=== PATIENT | male | born 1985 | race Caucasian/White ===

== ENCOUNTER 2020-04-25 08:31 | Outpatient (REF) | payer BC, SELFPAY ==
--- NOTE | ~2020-04-25 | US_ITS ---
EXAMINATION: US ABDOMEN COMPLETE CLINICAL INFORMATION: Cholesterolosis of gallbladder. COMPARISON: Ultrasound abdomen complete dated 08/01/2019 and 01/25/2013 TECHNIQUE: Real-time imaging of the abdominal viscera. Technically difficult study secondary to body habitus. FINDINGS: PANCREAS: Normal. ABDOMINAL AORTA: The proximal, mid, and distal segments are normal in caliber. INFERIOR VENA CAVA: Visualized portions are normal. LIVER: Mildly enlarged measuring up to 21.1 cm. The liver contour is normal. There is diffuse increased liver parenchymal echogenicity, consistent with hepatic steatosis. No focal hepatic lesion. There is no intrahepatic biliary duct dilatation seen. GALLBLADDER: Redemonstration of a nonmobile gallbladder wall polyp which measures approximately 1.2 x 0.8 x 1.2 cm (previously 0.9 x 0.7 cm). The gallbladder is physiologically distended without evidence of stones, sludge, wall thickening, or pericholecystic fluid. COMMON BILE DUCT: Normal in caliber measuring 0.3 cm in diameter. RIGHT KIDNEY: Normal. No hydronephrosis. No renal calculi or focal parenchymal lesions. The kidney measures 13.0 cm in maximum dimension. LEFT KIDNEY: Normal. No hydronephrosis. No renal calculi or focal parenchymal lesions. The kidney measures 12.8 cm in maximum dimension. SPLEEN: Normal. The spleen measures 12.4 cm in maximum dimension. FREE FLUID: None. US/US abdomen complete IMPRESSION: Hepatomegaly and hepatic steatosis are unchanged. Redemonstration of a gallbladder wall polyp which appears slightly more prominent when compared to the prior examination now measuring up to 1.2 cm (previously 1.9 cm).
[2020-04-25 11:58] LABS: Alanine Aminotransferase 96 U/L (0-40); Albumin Level 4.2 g/dL (3.5-5.0); Alkaline Phosphatase 79 U/L (39-117); Anion Gap 12 (12-20); Aspartate Amino Transferase 49 U/L (5-37); Bilirubin Total 0.7 mg/dL (0.0-1.0); Blood Urea Nitrogen 10 mg/dL (9-16); Carbon Dioxide 30 mmol/L (22-29); Chloride 100 mmol/L (96-108); Cholesterol 224 mg/dL; Estimated Glomerular Filt Rate > 60; Glucose Fasting 197 mg/dL (60-99); HDL Cholesterol 36 mg/dL; LDL Cholesterol Calculated 156 mg/dl; Potassium 4.4 mmol/L (3.3-5.1); Sodium 138 mmol/L (135-145); Triglycerides 161 mg/dL
[2020-04-25 12:11] LABS: Estimated Average Glucose 206 mg/dL; Hemoglobin A1c % 8.8 %
== END 2020-04-25 08:32 | disposition home or self-care (01) ==
LOC: HO.US 08:31
PROVIDERS: PCP Nurse Practitioner Family; Visit Provider Nurse Practitioner Family
DX: K82.4 Cholesterolosis of gallbladder (principal); E11.65 Type 2 diabetes mellitus with hyperglycemia
CPT/HCPCS: 36415; 76700; 80053; 80061; 83036

== ENCOUNTER → 2020-06-04 10:09 | Outpatient (BNVA) | payer BC, SELFPAY | PROVIDERS: PCP Nurse Practitioner Family; Visit Provider Surgery ==

== ENCOUNTER 2020-06-24 08:20 | Day surgery (SDC) | payer BC, SELFPAY ==
[2020-06-18 14:56] VITALS: BMI 39.6
--- NOTE | 2020-06-20 11:49 | HO.ANESPROP2 ---
Documented by User: Mary Delatorre 06/20/20 11:50 HPI - Anesthesia Eval Consult details Narrative: 34yo M for Laparoscopic Cholecystectomy, Poss Open [facility] Active Problems Active Problems: All Active Problems (Updated 06/18/20 @ 14:57 by Peggy Hidalgo) Gallbladder polyp (Acute) Uncontrolled diabetes mellitus (Acute) Past Medical History Medical History (Updated 06/24/20 @ 09:11 by Amanda Daley) Elevated cholesterol Elevated ferritin Forehead laceration Gluteal abscess HTN (hypertension) Increased BMI Liver function abnormality Obesity JENNIFFER on CPAP Psoriasis Sleep apnea Type 2 diabetes mellitus Uncontrolled diabetes mellitus Family History Family History Father Heart attack Alcoholism Mother High cholesterol Maternal Grandmother Hx of CABG Maternal Grandfather Hx of CABG Surgical History Surgical History (Updated 06/24/20 @ 09:09 by Amanda Daley) History of excision of lesion No pertinent past surgical history Social History Social History Alcohol intake: former Smoking Status: Former smoker Tobacco Type: Cigarette Advance Directives Information Provided: No Meds Allergies Allergy/AdvReac Type Severity Reaction Status Date / Time No Known Allergies Allergy Verified 04/11/20 17:21 Exam Exam Date and Time: June 20, 2020 1149 Height,Weight and Vital Signs: Height 5 ft 5 in Weight 108 kg Pertinent Lab Results Pertinent Lab Results: Laboratory Tests 04/25/20 09:36 Sodium 138 Potassium 4.4 Chloride 100 Carbon Dioxide 30 H BUN 10 Creatinine 0.75 Assessment and Plan Assessment Anesthesia Assessment: Chart Reviewed Documented by User: Amanda Daley 06/24/20 09:13 PMFSH Past Medical History Medical History (Updated 06/24/20 @ 09:11 by Amanda Daley) Elevated cholesterol Elevated ferritin Forehead laceration Gluteal abscess HTN (hypertension) Increased BMI Liver function abnormality Obesity JENNIFFER on CPAP Psoriasis Sleep apnea Type 2 diabetes mellitus Uncontrolled diabetes mellitus Family History Family History Father Heart attack Alcoholism Mother High cholesterol Maternal Grandmother Hx of CABG Maternal Grandfather Hx of CABG Family history of problems with anesthesia: No Surgical History Surgical History (Updated 06/24/20 @ 09:09 by Amanda Daley) History of excision of lesion No pertinent past surgical history Social History Social History Alcohol intake: former Smoking Status: Former smoker Tobacco Type: Cigarette Advance Directives Information Provided: No Meds Allergies Allergy/AdvReac Type Severity Reaction Status Date / Time No Known Allergies Allergy Verified 04/11/20 17:21 Exam Height,Weight and Vital Signs: Vital Signs Temp Pulse Resp BP Pulse Ox 06/24/20 08:44 98.0 F 94 16 147/91 H 97 Pertinent Lab Results Pertinent Lab Results: Lab Results 06/24/20 Range/Units 08:33 POC Glucose 218 H (60-115) mg/dL Airway Mallampati Class: III TM Dist: >3cm Neck ROM: Full Loose/Missing/Broken Teeth: No Heart: RRR Lungs: CTAB Assessment and Plan Assessment Anesthesia Assessment: Anesthesia Plan Discussed and Chart Reviewed Final Anesthetic Review NPO: Yes ASA Class: II Final Preanesthetic Review: No Changes in Pt Med Stat, Meds/Allgs Chart Reviewed, Consent Obtained/Reviewed and Anes Risks/Benef Reviewed Patient Risk: Intermediate Procedure Risk: Intermediate Assessment/Block/Sedation in SS: Assess/Block/Sedation-SS Anesthetic Plan Anesthetic Plan: GA Disposition: Standard PACU
[2020-06-24] VITALS (9 sets, daily range): BP systolic 80–147; BP diastolic 39–91; PULSE 85–94; RESP 16–18; TEMP 36.7–36.9; O2SAT 94–98
[2020-06-24 08:37] LABS: Glucose, Whole Blood 218 mg/dL (60-115)
[2020-06-24] MEDS: Acetaminophen 325 MG TABLET 650 MG PO (08:37)
--- NOTE | 2020-06-24 08:45 | PC.NURSE ---
Patient wearing one silver necklace with dragon pendant and one wedding band. Taken off and per patient request, put in patients red jacket pocket.
[2020-06-24] MEDS: Lactated Ringers 1,000 ML 100 ML IVCONT (08:58)
--- NOTE | 2020-06-24 09:32 | MHC.SHP ---
Pre-Procedural Eval Section A The patient is an INPATIENT: No Changes since office visit: Yes Patient answered all questions; No Cold of Flu in the past 2 weeks, No New Medical Problems and No Changes in Medication The History & Physical has been completed within 30 days and I have reviewed it.: Yes Section B Chief Complaint: Gallbladder Polyp Allergies: Allergies Allergy/AdvReac Type Severity Reaction Status Date / Time No Known Allergies Allergy Verified 04/11/20 17:21 Plan Diagnosis/Plan: Unchanged I have reviewed the history and physical and performed a pertinent physical examination on my patient. No changes have occurred unless specified.
--- NOTE | 2020-06-24 11:28 | W.PM.OPN ---
Operative Note Operative Note Date of Service: 06/24/20 Narrative: Preoperative diagnosis: Gallbladder polyp Postoperative diagnosis: Same Procedure: Laparoscopic cholecystectomy Surgeon: Andrew Bradley MD [employer]ie[employer] Developer: MAXWELL Griggs Anesthesia: General endotracheal Indications for procedure: 34-year-old male patient presenting with incidentally noted gallbladder polyp which has increased in size and is now greater than 1 cm in length. He presents for laparoscopic cholecystectomy. He has no abdominal symptoms at this time. Operative findings: Normal appearing gallbladder with no obvious palpable mass. Liver with fatty changes. Specimen: Gallbladder Estimated blood loss: 5 mL Complications: None Procedure details: Patient was brought to the OR and placed in a supine position. After administering general anesthesia the patient's abdomen was prepped with ChloraPrep and draped in a sterile fashion. Local anesthesia consisting of 0.5% Sensorcaine with epinephrine was infiltrated in a periumbilical region. A 5 mm incision was made above the umbilicus in a transverse fashion. The Veress needle was then inserted while elevating abdominal cavity with towel clips. After positive drop test the abdomen was insufflated to a pressure of 15 mm of mercury. The Veress needle was then removed and a 5 mm trocar inserted. The camera was inserted in the abdomen explored. A 12 mm trocar was then placed in the epigastrium and 2 x 5 mm trocars placed in the right upper quadrant. The patient was placed in reverse Trendelenburg positioning and rotated to the left. The gallbladder was grasped with the fundus and retracted cephalad.. The infundibulum Was then grasped and retracted away from the liver bed. The Dolphin dissected was then used to dissect the peritoneum off the infundibulum to reveal the junction with the cystic duct. Cystic artery was noted slightly medial and posterior to the cystic duct. After obtaining a critical view the cystic duct was doubly clipped and divided. The cystic artery was then doubly clipped and divided. The gallbladder was then dissected off the liver bed using electrocautery with an L hook. Hemostasis was assured all times using the electrocautery. When the gallbladder is completely dissected off the liver bed was placed in an Endo-Catch bag and brought out through the epigastric incision. The gallbladder was sent to pathology for further examination. The abdomen was then re-examined. The liver bed was irrigated and suctioned dry. No bleeding or bile leak could be identified. CO2 was then evacuated and all trocars removed. Fascia was closed at the epigastric incision using a [id number] 0 Polysorb suture. Skin was closed in all incisions using a subcuticular 4 0 Polysorb suture. Sterile dressings consisting of Steri-Strips, 2 x 2 gauze, and Tegaderm were then applied. The patient tolerated the procedure well. Sponge instrument and needle counts reported as correct. The patient was transferred to PACU in stable condition.
== END 2020-06-24 13:38 | disposition home or self-care (01) ==
PROVIDERS: PCP Nurse Practitioner Family; Visit Provider Surgery
PROC: 0FT44ZZ Resection of Gallbladder, Percutaneous Endoscopic Approach (ICD-10-PCS; CPT 47562; principal; 2020-06-24 09:20)
DX: K81.1 Chronic cholecystitis (principal); I10 Essential (primary) hypertension; E11.9 Type 2 diabetes mellitus without complications; K76.0 Fatty (change of) liver, not elsewhere classified; G47.33 Obstructive sleep apnea (adult) (pediatric); Z79.84 Long term (current) use of oral hypoglycemic drugs; Z79.899 Other long term (current) drug therapy; Z87.891 Personal history of nicotine dependence
CPT/HCPCS: 47562; 82947; 88304; J1100; J1170; J2250; J2370; J2405; J3010

== ENCOUNTER → 2020-07-05 10:54 | Outpatient (BNVA) | payer BC, SELFPAY | PROVIDERS: PCP Nurse Practitioner Family; Referring Provider Nurse Practitioner Family; Visit Provider Surgery ==

== ENCOUNTER 2020-07-17 06:38 | Outpatient (REF) | payer BC, SELFPAY ==
[2020-07-17 12:00] LABS: Alanine Aminotransferase 81 U/L (0-40); Albumin Level 4.2 g/dL (3.5-5.0); Alkaline Phosphatase 77 U/L (39-117); Anion Gap 18 (12-20); Aspartate Amino Transferase 40 U/L (5-37); Bilirubin Total 1.2 mg/dL (0.0-1.0); Blood Urea Nitrogen 12 mg/dL (9-16); Calcium 9.7 mg/dL (8.4-10.2); Carbon Dioxide 29 mmol/L (22-29); Chloride 96 mmol/L (96-108); Cholesterol 200 mg/dL; Estimated Average Glucose 192 mg/dL; Estimated Glomerular Filt Rate > 60; Glucose Fasting 207 mg/dL (60-99); HDL Cholesterol 33 mg/dL; Hemoglobin A1c % 8.3 %; LDL Cholesterol Calculated 129 mg/dl; Potassium 4.6 mmol/L (3.3-5.1); Sodium 138 mmol/L (135-145); Total Protein 7.3 g/dL (6.5-8.0); Triglycerides 190 mg/dL
[2020-07-17 12:13] LABS: Creatinine Urine 171.66 mg/dL; Microalbum/Creatinine Ratio Ur 8.1 ug/mg cr
[2020-07-17 12:25] LABS: TSH reflex Free T4 0.83 uIU/mL (0.32-4.0)
== END 2020-07-17 06:39 | disposition home or self-care (01) ==
LOC: HO.HMGCLDS 06:38
PROVIDERS: PCP Nurse Practitioner Family; Visit Provider Nurse Practitioner Family
DX: E11.65 Type 2 diabetes mellitus with hyperglycemia (principal)
CPT/HCPCS: 36415; 80053; 80061; 82043; 83036; 84443

== ENCOUNTER 2020-11-15 10:19 | Outpatient (REF) | payer OTHER, SELFPAY ==
[2020-11-15 13:36] LABS: Alanine Aminotransferase 159 U/L (0-40); Albumin Level 4.1 g/dL (3.5-5.0); Alkaline Phosphatase 77 U/L (39-117); Anion Gap 13 (12-20); Aspartate Amino Transferase 91 U/L (5-37); Blood Urea Nitrogen 8 mg/dL (9-16); Calcium 9.2 mg/dL (8.4-10.2); Carbon Dioxide 28 mmol/L (22-29); Chloride 101 mmol/L (96-108); Cholesterol 212 mg/dL; Estimated Glomerular Filt Rate > 60; Glucose Random 175 mg/dL (60-115); HDL Cholesterol 32 mg/dL; LDL Cholesterol Calculated 149 mg/dl; Potassium 4.1 mmol/L (3.3-5.1); Sodium 138 mmol/L (135-145); Triglycerides 155 mg/dL
[2020-11-15 14:05] LABS: Estimated Average Glucose 214 mg/dL; Hemoglobin A1c % 9.1 %
== END 2020-11-15 10:20 | disposition home or self-care (01) ==
LOC: HO.HMGCLDS 10:19
PROVIDERS: PCP Nurse Practitioner Family; Visit Provider Nurse Practitioner Family
DX: E11.65 Type 2 diabetes mellitus with hyperglycemia (principal)
CPT/HCPCS: 36415; 80053; 80061; 83036

== ENCOUNTER 2021-01-02 09:02 | Outpatient (REF) | payer OTHER, SELFPAY ==
[2021-01-02 11:44] LABS: Appearance Urine CLEAR; Color Urine DK YELLOW; Glucose Urine UA NEG (NEG); Leukocyte Esterase Urine NEG (NEG); Nitrite Urine NEG (NEG); Specific Gravity - Urine >= 1.030 (1.005-1.025); Urine Blood NEG (NEG); Urine Ketones 5 MG/DL (NEG); Urine Protein NEG (NEG-TRACE)
[2021-01-02 12:39] LABS: Alanine Aminotransferase 183 U/L (0-40); Albumin Level 4.2 g/dL (3.5-5.0); Alkaline Phosphatase 76 U/L (39-117); Anion Gap 15 (12-20); Aspartate Amino Transferase 103 U/L (5-37); Bilirubin Total 1.3 mg/dL (0.0-1.0); Blood Urea Nitrogen 7 mg/dL (9-16); Calcium 9.2 mg/dL (8.4-10.2); Carbon Dioxide 24 mmol/L (22-29); Chloride 102 mmol/L (96-108); Cholesterol 208 mg/dL; Estimated Glomerular Filt Rate > 60; Glucose Fasting 131 mg/dL (60-99); HDL Cholesterol 32 mg/dL; LDL Cholesterol Calculated 147 mg/dl; Sodium 137 mmol/L (135-145); Total Protein 7.1 g/dL (6.5-8.0); Triglycerides 145 mg/dL
[2021-01-02 12:58] LABS: TSH reflex Free T4 0.49 uIU/mL (0.32-4.0)
== END 2021-01-02 09:03 | disposition home or self-care (01) ==
LOC: HO.HMGCLDS 09:02
PROVIDERS: PCP Nurse Practitioner Family; Visit Provider Nurse Practitioner Family
DX: Z00.00 Encounter for general adult medical examination without abnormal findings (principal)
CPT/HCPCS: 36415; 80053; 80061; 81003; 84443

== ENCOUNTER → 2021-02-19 13:31 | Outpatient (BNVA) | payer OTHER, SELFPAY | PROVIDERS: PCP Nurse Practitioner Family; Visit Provider Urology ==

== ENCOUNTER 2021-02-24 13:20 | Outpatient (REF) | payer BC, SELFPAY ==
[2021-02-24 16:29] LABS: Estimated Average Glucose 226 mg/dL; Hemoglobin A1c % 9.5 %
[2021-02-24 16:49] LABS: Anion Gap 12 (12-20); Blood Urea Nitrogen 6 mg/dL (9-16); Calcium 9.6 mg/dL (8.4-10.2); Carbon Dioxide 29 mmol/L (22-29); Chloride 101 mmol/L (96-108); Cholesterol 222 mg/dL; Estimated Glomerular Filt Rate > 60; Glucose Fasting 134 mg/dL (60-99); HDL Cholesterol 35 mg/dL; LDL Cholesterol Calculated 144 mg/dl; Potassium 3.9 mmol/L (3.3-5.1); Sodium 138 mmol/L (135-145); Triglycerides 219 mg/dL
== END 2021-02-24 13:21 | disposition home or self-care (01) ==
LOC: HO.HMGCLDS 13:20
PROVIDERS: PCP Nurse Practitioner Family; Visit Provider Nurse Practitioner Family
DX: E11.65 Type 2 diabetes mellitus with hyperglycemia (principal)
CPT/HCPCS: 36415; 80048; 80061; 83036

== ENCOUNTER 2021-06-16 10:08 | Outpatient (REF) | payer BC, SELFPAY ==
[2021-06-16 11:53] LABS: Appearance Urine CLEAR; Color Urine YELLOW; Glucose Urine UA NEG (NEG); Leukocyte Esterase Urine NEG (NEG); Nitrite Urine NEG (NEG); Specific Gravity - Urine 1.025 (1.005-1.025); Urine Blood NEG (NEG); Urine Ketones NEG (NEG); Urine Protein NEG (NEG-TRACE)
[2021-06-16 12:11] LABS: Alanine Aminotransferase 98 U/L (0-40); Alkaline Phosphatase 73 U/L (39-117); Anion Gap 14 (12-20); Aspartate Amino Transferase 60 U/L (5-37); Bilirubin Total 1.3 mg/dL (0.0-1.0); Blood Urea Nitrogen 8 mg/dL (9-16); Calcium 9.3 mg/dL (8.4-10.2); Carbon Dioxide 25 mmol/L (22-29); Chloride 101 mmol/L (96-108); Cholesterol 204 mg/dL; Estimated Average Glucose 203 mg/dL; Estimated Glomerular Filt Rate > 60; Glucose Fasting 165 mg/dL (60-99); HDL Cholesterol 37 mg/dL; Hemoglobin A1c % 8.7 %; LDL Cholesterol Calculated 129 mg/dl; Potassium 4.1 mmol/L (3.3-5.1); Sodium 136 mmol/L (135-145); Total Protein 6.9 g/dL (6.5-8.0); Triglycerides 193 mg/dL
[2021-06-16 12:13] LABS: TSH reflex Free T4 0.61 uIU/mL (0.32-4.0)
== END 2021-06-16 10:09 | disposition home or self-care (01) ==
LOC: HO.HMGCLDS 10:08
PROVIDERS: Visit Provider Nurse Practitioner Family
DX: E11.65 Type 2 diabetes mellitus with hyperglycemia (principal)
CPT/HCPCS: 36415; 80053; 80061; 81003; 83036; 84443

== ENCOUNTER 2022-01-05 06:18 | Outpatient (REF) | payer BC, SELFPAY ==
[2022-01-05 11:36] LABS: Appearance Urine Turbid; Color Urine Yellow; Glucose Urine UA Negative (Negative); Leukocyte Esterase Urine Negative (Negative); Nitrite Urine Negative (Negative); PH 5.5 (5.0-9.0); Specific Gravity - Urine >= 1.030 (1.005-1.025); Urine Blood Negative (Negative); Urine Ketones Negative (Negative); Urine Protein Negative (Neg-Trace)
[2022-01-05 11:38] LABS: MANUAL DIFF FLAG NO
[2022-01-05 11:52] LABS: Basophils Absolute Auto 0.1 X10*3/uL (0.0-0.2); Basophils Percent Auto 0.6 % (0-2); Eosinophils Absolute Auto 0.2 X10*3/uL (0.0-0.4); Eosinophils Percent Auto 1.6 % (0-4); Hematocrit 46.5 % (42.0-52.0); Hemoglobin 15.4 g/dl (14.0-18.0); Imm Gran Abs Auto 0.03 X10*3/uL (0.00-0.03); Imm Gran Pct Auto 0.3 % (0.0-0.4); Lymphocytes Absolute Auto 3.2 X10*3/uL (1.2-4.9); Lymphocytes Percent Auto 30.7 % (20-40); Mean Corpuscular HGB Conc 33.1 g/dl (31.0-36.0); Mean Corpuscular Hemoglobin 28.1 pg (27.0-33.0); Mean Corpuscular Volume 84.9 fL (80.0-98.0); Mean Platelet Volume 10.5 fL (9.4-12.4); Monocytes Absolute Auto 0.5 X10*3/uL (0.1-1.2); Monocytes Percent Auto 4.9 % (2-11); Neutrophils Absolute Auto 6.5 x10*3/uL (2.0-8.3); Neutrophils Percent Auto 61.9 % (45-73); Platelet Count 305 X10*3/uL (160-400); Red Blood Count 5.48 X10*6/uL (4.60-5.80); Red Cell Distribution Width 12.9 % (11.0-16.0); White Blood Count 10.5 X10*3/uL (4.8-10.8)
[2022-01-05 12:09] LABS: Alanine Aminotransferase 28 U/L (0-40); Albumin Level 4.3 g/dL (3.5-5.0); Alkaline Phosphatase 75 U/L (39-117); Anion Gap 16 (12-20); Aspartate Amino Transferase 18 U/L (5-37); Bilirubin Total 0.6 mg/dL (0.0-1.0); Blood Urea Nitrogen 9 mg/dL (9-16); Calcium 9.5 mg/dL (8.4-10.2); Carbon Dioxide 24 mmol/L (22-29); Chloride 103 mmol/L (96-108); Cholesterol 197 mg/dL; Estimated Glomerular Filt Rate > 60; Glucose Fasting 107 mg/dL (60-99); HDL Cholesterol 37 mg/dL; LDL Cholesterol Calculated 136 mg/dl; Potassium 4.1 mmol/L (3.3-5.1); Sodium 139 mmol/L (135-145); Total Protein 7.5 g/dL (6.5-8.0); Triglycerides 123 mg/dL
[2022-01-05 12:27] LABS: Microalbum/Creatinine Ratio Ur 5.8 ug/mg cr
[2022-01-05 12:31] LABS: TSH reflex Free T4 0.69 uIU/mL (0.32-4.0)
[2022-01-05 12:32] LABS: Estimated Average Glucose 123 mg/dL; Hemoglobin A1c % 5.9 %
== END 2022-01-05 06:19 | disposition home or self-care (01) ==
LOC: HO.HMGCLDS 06:18
PROVIDERS: PCP Nurse Practitioner Family; Visit Provider Nurse Practitioner Family
DX: E11.65 Type 2 diabetes mellitus with hyperglycemia (principal)
CPT/HCPCS: 36415; 80053; 80061; 81003; 82043; 83036; 84443; 85025

== ENCOUNTER 2022-05-23 06:54 | Outpatient (REF) | payer BC, SELFPAY ==
[2022-05-23 11:01] LABS: MANUAL DIFF FLAG NO
[2022-05-23 11:04] LABS: Basophils Absolute Auto 0.1 X10*3/uL (0.0-0.2); Basophils Percent Auto 0.6 % (0-2); Eosinophils Absolute Auto 0.2 X10*3/uL (0.0-0.4); Eosinophils Percent Auto 1.7 % (0-4); Hemoglobin 14.7 g/dl (14.0-18.0); Imm Gran Abs Auto 0.02 X10*3/uL (0.00-0.03); Imm Gran Pct Auto 0.2 % (0.0-0.4); Lymphocytes Absolute Auto 3.1 X10*3/uL (1.2-4.9); Lymphocytes Percent Auto 36.1 % (20-40); Mean Corpuscular HGB Conc 33.4 g/dl (31.0-36.0); Mean Corpuscular Hemoglobin 28.4 pg (27.0-33.0); Mean Corpuscular Volume 84.9 fL (80.0-98.0); Monocytes Absolute Auto 0.5 X10*3/uL (0.1-1.2); Monocytes Percent Auto 6.1 % (2-11); Neutrophils Absolute Auto 4.8 x10*3/uL (2.0-8.3); Neutrophils Percent Auto 55.3 % (45-73); Platelet Count 260 X10*3/uL (160-400); Red Blood Count 5.18 X10*6/uL (4.60-5.80); Red Cell Distribution Width 12.8 % (11.0-16.0); White Blood Count 8.7 X10*3/uL (4.8-10.8)
[2022-05-23 11:12] LABS: Appearance Urine Cloudy; Color Urine Yellow; Glucose Urine UA 100 mg/dL (Negative); Leukocyte Esterase Urine Negative (Negative); Nitrite Urine Negative (Negative); Specific Gravity - Urine >= 1.030 (1.005-1.025); Urine Blood Negative (Negative); Urine Ketones Negative (Negative); Urine Protein Trace mg/dL (Neg-Trace)
[2022-05-23 11:31] LABS: Estimated Average Glucose 180 mg/dL; Hemoglobin A1c % 7.9 %
[2022-05-23 12:40] LABS: Alanine Aminotransferase 43 U/L (0-40); Albumin Level 4.2 g/dL (3.5-5.0); Alkaline Phosphatase 74 U/L (39-117); Anion Gap 13 (12-20); Aspartate Amino Transferase 23 U/L (5-37); Bilirubin Total 0.8 mg/dL (0.0-1.0); Blood Urea Nitrogen 8 mg/dL (9-16); Calcium 8.9 mg/dL (8.4-10.2); Carbon Dioxide 24 mmol/L (22-29); Chloride 106 mmol/L (96-108); Cholesterol 155 mg/dL; Estimated Glomerular Filt Rate > 60; Glucose Fasting 175 mg/dL (60-99); HDL Cholesterol 33 mg/dL; LDL Cholesterol Calculated 100 mg/dl; Potassium 4.2 mmol/L (3.3-5.1); Sodium 139 mmol/L (135-145); Total Protein 6.8 g/dL (6.5-8.0); Triglycerides 111 mg/dL
== END 2022-05-23 06:55 | disposition home or self-care (01) ==
LOC: HO.HMGCLDS 06:54
PROVIDERS: PCP Nurse Practitioner Family; Visit Provider Nurse Practitioner Family
DX: E11.9 Type 2 diabetes mellitus without complications (principal)
CPT/HCPCS: 36415; 80053; 80061; 81003; 83036; 84443; 85025

== ENCOUNTER 2022-07-31 11:00 | Outpatient (RCR) | payer BC, SELFPAY ==
--- NOTE | 2022-07-03 12:06 | MHC.PT.EP ---
[facility] [place] Office [place] Office [place] Office [address] [phone] F: [phone] F: [phone] F: [phone] F: [phone] Physical Therapy Plan of Care Date of Evaluation: Date of Surgery: none Diagnosis: low back pain Assessment: Patient is a 36 year old R handed male who presents with s/s consistent with low back pain. 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 Patient past medical history includes DM, HTN, and high cholesterol. Current impairments include pain, posture, ROM, strength, activity flexibility, tolerance and functional mobility. Functional limitations include decreased ability to throw, run, hit, catch, and play softball. Patient is motivated with good rehab potential. Skilled PT will address impairments and functional limitations in order to achieve goals. Frequency and Duration: The patient will be seen 1x/week for 5 weeks Short Term Goals: I with HEP - 2 weeks Pain free full AROM - 3 weeks 90/90 lacking 20 or less - 3 weeks [employer] Goals: gastroc min tightness - 5 weeks Oswestry 8% or better - 5 weeks Able to resume softball pain free - 5 weeks Treatment Plan: Modalities to reduce pain, spasms and effusion. Manual therapy to restore motion and function. Therapeutic exercise to improve strength and flexibility. Neuromuscular re-education for posture and balance. Therapeutic activities to return to functional activities of daily living. Electronically signed by: Aquilino Langford PT Please sign and return to therapist. Thank you for your referral.
--- NOTE | 2022-07-31 12:53 | MHC.PT.DC ---
[facility] [place] Office [place] Office [place] Office [address] Alayna Santnaa [address] [phone] F: [phone] F: [phone] F: [phone] F: [phone] Physical Therapy Discharge Report Diagnosis: low back pain Date of Surgery: none Date of Evaluation: 07/03/22 Date of Discharge: Treatments to Date: 5 Cancellations to Date: No Shows to Date: Discharge Status: Discharge Summary: 07/31/22: I with HEP. pain free full AROM. 90/90 progressed. OSwestry 20%. gastroc min tight b/l. Resumed softball. He has updated HEP and appropriate bands. We will d/c to HEP at this time. 07/28/22: pt has been feeling better overall with skilled PT. compliant with HEP. we will continue to progress as tolerated and discern d/c vs continue NV. 07/17/22: progressed program and updated HEP today. added bands as needed. continue to progress as tolerated. 07/10/22: pt has been feeling better overall with HEP. some discomfort intermittently likely related to activities outside of PT. Patient is a 36 year old R handed male who presents with s/s consistent with low back pain. 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 Patient past medical history includes DM, HTN, and high cholesterol. Current impairments include pain, posture, ROM, strength, activity flexibility, tolerance and functional mobility. Functional limitations include decreased ability to throw, run, hit, catch, and play softball. Patient is motivated with good rehab potential. Skilled PT will address impairments and functional limitations in order to achieve goals. Electronically signed by: Please sign and return to therapist. Thank you for your referral.
== END 2022-07-31 12:54 | disposition home or self-care (01) ==
LOC: HO.PTCHIC 11:00
PROVIDERS: PCP Nurse Practitioner Family; Visit Provider Nurse Practitioner Family
DX: M54.50 Low back pain, unspecified (principal)
CPT/HCPCS: 97110; 97161

== ENCOUNTER 2022-08-21 06:15 | Outpatient (REF) | payer BC, SELFPAY ==
[2022-08-21 11:34] LABS: Appearance Urine Turbid; Color Urine Dark Yellow; Glucose Urine UA Negative (Negative); Leukocyte Esterase Urine Negative (Negative); Nitrite Urine Negative (Negative); PH 5.5 (5.0-9.0); Specific Gravity - Urine >= 1.030 (1.005-1.025); Urine Blood Negative (Negative); Urine Ketones Trace mg/dL (Negative); Urine Protein Negative (Neg-Trace)
== END 2022-08-21 06:16 | disposition home or self-care (01) ==
LOC: HO.HMGCLDS 06:15
PROVIDERS: PCP Nurse Practitioner Family; Visit Provider Nurse Practitioner Family
DX: E11.9 Type 2 diabetes mellitus without complications (principal)
CPT/HCPCS: 36415; 80053; 80061; 81003; 83036; 84443; 85025

== ENCOUNTER 2022-08-22 08:56 | Outpatient (REF) | payer BC, SELFPAY ==
--- NOTE | ~2022-08-22 | XR_ITS ---
EXAMINATION: XR LUMBOSACRAL SPINE CLINICAL INFORMATION: Reason for Exam M54.50 - Low back pain, unspecified COMPARISON: None TECHNIQUE: 3 views of the lumbar spine FINDINGS: 5 nonrib-bearing lumbar-type vertebral bodies. Vertebral body heights are maintained. Grade 1 retrolisthesis of L4 on L5. Mild degenerative disc disease at L3-L4 with degenerative endplate spurring. Atherosclerosis of the abdominal aorta. Right upper quadrant cholecystectomy clips. XR/XR lumbar spine 2-3V IMPRESSION: 1. Grade 1 retrolisthesis of L4 on L5. 2. Mild degenerative disc disease at L3-L4 with degenerative endplate spurring.
== END 2022-08-22 08:57 | disposition home or self-care (01) ==
LOC: HO.HMGCX 08:56
PROVIDERS: PCP Nurse Practitioner Family; Visit Provider Nurse Practitioner Family
DX: M54.50 Low back pain, unspecified (principal); G89.29 Other chronic pain
CPT/HCPCS: 72100

== ENCOUNTER 2022-08-26 15:08 | Outpatient (AMB) | payer BC, SELFPAY ==
--- NOTE | 2022-08-26 15:22 | MHC.PC.OV ---
Vital Signs 08/26/22 15:23 Height 5 ft 4 in Weight 259 lb 6 oz BMI 44.5 BP 110/80 Blood Pressure Location Rt brachial Position Sitting Pulse 85 Pulse Source Pulse Oximeter Pulse Oximetry (%) 98 Oxygen Delivery Method Room Air Intake Visit Reasons: 3m follow up Allergies No Known Allergies Allergy (Verified 08/26/22 18:11) Medication List - Last Reconciled 08/26/22 by BRAIN Saunders blood sugar diagnostic (FreeStyle Lite Strips) check glucose twice a day CPAP (CPAP Machine/Device) Auto pressure 10-11, heated humidification and supplies dulaglutide (Trulicity) 4.5 mg (0.5 mL) subcut QWEEK lisinopril 40 mg PO DAILY metformin 1,000 mg PO BID pioglitazone 30 mg PO DAILY rosuvastatin (Crestor) 20 mg PO DAILY 90 days Tobacco use date assessed: 08/26/22 Dental Screening Dental Screen Date: 08/26/22 Did you have a dental visit in the last 12 months?: Yes Did you have a dental problem in the last 6 months where you did not have access to dental care?: No Was dental information given to patient?: Patient has dentist HPI 3m follow up HPI Details Pt is a diabetic, on an CAROL and a statin. Last A1c was 7.3, microalbumin is up to date. Denies polyuria, polydipsia, and neuropathy. Pt denies any signs and symptoms of hypoglycemia and does know how to correct it. Pt has been taking trulicity 3mg at home, will increase to 4.5mg. Pt had a slight increase in WBC. Denies any signs of infection. Will repeat CBC. [facility] Medical History Elevated cholesterol Elevated ferritin Forehead laceration Gluteal abscess HTN (hypertension) Increased BMI Liver function abnormality Obesity JENNIFFER on CPAP Psoriasis Sleep apnea Type 2 diabetes mellitus Uncontrolled diabetes mellitus Surgical History History of excision of lesion No pertinent past surgical history S/P cholecystectomy Family History Father Heart attack Alcoholism Mother High cholesterol Maternal Grandmother Hx of CABG Mental health disorder Maternal Grandfather Hx of CABG Mental health disorder Social History Housing: Apartment Alcohol intake: former Patient Tobacco Use Status: Former Tobacco user Years Smoked: 5 yrs e-Cigarette/Vaping Use: Never Used Second Hand Smoke Exposure: No service: No Current occupational status: employed Cognitive needs: No Hearing needs: No Vision needs: Yes Questionnaire Thrive Questionnaire Date Thrive assessed: 02/24/21 JAYLON-7 AMB Questionnaire JAYLON-7 Date JAYLON - 7 assessed: 02/24/21 Source: Developed by Drs. Heriberto Alcaraz, Ernestina Calixto, Chicho Moreno and colleagues, with an educational michael from [employer]. Review of Systems Const Reports as per HPI Physical exam (Primary Care) Vital Signs: Last Vital Signs Pulse 85 08/26/22 15:23 BP 110/80 08/26/22 15:23 Pulse Ox 98 08/26/22 15:23 Oxygen Delivery Method Room Air 08/26/22 15:23 BMI result Body Mass Index 44.5 Tobacco/Smoking Status: Tobacco use Status Tobacco use date assessed 08/26/22 08/26/22 15:27 Patient Tobacco Use Status Former Tobacco user 08/26/22 15:24 e-Cigarette/Vaping Use Never Used 08/26/22 15:24 Thrive Assessment: Date of Thrive Assessment Date Thrive assessed 02/24/21 08/26/22 15:24 Const General: cooperative Nutritional Appearance: obese morbidly obese Orientation/consciousness: patient oriented x3 Resp Effort & Inspection: normal respiratory effort Auscultation: clear to auscultation bilaterally Cardio Rate: regular rate Rhythm: regular rhythm Heart sounds: S1 normal heart sound present and S2 normal heart sound present Neuro General: patient oriented x3 Extrem Other: bilat feet: + sensation with use of monofilament Psych Appearance: grossly normal Mental Status: mental status grossly normal Speech and movement: Normal speech and movement present Affect: normal affect Attitude: cooperative Thought process: Normal thought process present Thought content: Normal thought content present Insight: Good insight present (Psych) Judgement: Good judgement present (Psych) Results AMB Hemoglobin A1c AMB Hemoglobin A1c 7.6 % Last Edit by Jeannine Fitzgerald CMA on 08/26/22 15:50 Results Reviewed Results Reviewed: Laboratory Last Values Hgb A1c (Clinic) 7.6 % (4.0-6.0) H 08/26/22 15:49 Assessment and Plan Assessment & Plan (1) Leukocytosis: Code(s): D72.829 - Elevated white blood cell count, unspecified Plan: CBC ordered (2) Diabetes: Code(s): E11.9 - Type 2 diabetes mellitus without complications Plan The patient agreed to the use of a emergency medical technician for this encounter. Scribed for BRAIN Harris by macey Jimenes scribe, on 08/26/2022 at 15:45 EST. Orders: Orders Complete Blood Count Auto Diff Today D72.829 - Elevated white blood cell count, unspecified AMB Hemoglobin A1c Today E11.65 - Type 2 diabetes mellitus with hyperglycemia Medications: New dulaglutide (Trulicity) 4.5 mg (0.5 mL) subcut QWEEK 2 mL 3RF Coding Level of Care Code Est Pt Level 3 (42259) Diagnoses Leukocytosis D72.829 Diabetes E11.9
[2022-08-26 15:23] VITALS: BP 110/80; PULSE 85; O2SAT 98; BMI 44.5
== END 2022-08-26 15:58 | disposition home or self-care (01) ==
PROVIDERS: Visit Provider Nurse Practitioner Family
DX: D72.829 Elevated white blood cell count, unspecified (principal); E11.9 Type 2 diabetes mellitus without complications; E11.65 Type 2 diabetes mellitus with hyperglycemia
CPT/HCPCS: 83036; 99213

== ENCOUNTER 2022-08-28 08:13 | Outpatient (REF) | payer BC, SELFPAY ==
[2022-08-28 11:31] LABS: MANUAL DIFF FLAG NO
[2022-08-28 11:42] LABS: Basophils Absolute Auto 0.1 X10*3/uL (0.0-0.2); Basophils Percent Auto 0.8 % (0-2); Eosinophils Absolute Auto 0.1 X10*3/uL (0.0-0.4); Eosinophils Percent Auto 1.5 % (0-4); Hematocrit 45.1 % (42.0-52.0); Hemoglobin 14.8 g/dl (14.0-18.0); Imm Gran Abs Auto 0.03 X10*3/uL (0.00-0.03); Imm Gran Pct Auto 0.3 % (0.0-0.4); Lymphocytes Absolute Auto 3.1 X10*3/uL (1.2-4.9); Lymphocytes Percent Auto 35.3 % (20-40); Mean Corpuscular HGB Conc 32.8 g/dl (31.0-36.0); Mean Corpuscular Hemoglobin 28.1 pg (27.0-33.0); Mean Corpuscular Volume 85.6 fL (80.0-98.0); Mean Platelet Volume 10.6 fL (9.4-12.4); Monocytes Absolute Auto 0.6 X10*3/uL (0.1-1.2); Monocytes Percent Auto 6.7 % (2-11); Neutrophils Absolute Auto 4.9 x10*3/uL (2.0-8.3); Neutrophils Percent Auto 55.4 % (45-73); Platelet Count 260 X10*3/uL (160-400); Red Blood Count 5.27 X10*6/uL (4.60-5.80); Red Cell Distribution Width 12.4 % (11.0-16.0); White Blood Count 8.8 X10*3/uL (4.8-10.8)
== END 2022-08-28 08:14 | disposition home or self-care (01) ==
LOC: HO.HMGCLDS 08:13
PROVIDERS: PCP Nurse Practitioner Family; Visit Provider Nurse Practitioner Family
DX: D72.829 Elevated white blood cell count, unspecified (principal)
CPT/HCPCS: 36415; 85025

== ENCOUNTER 2023-09-29 15:23 | Outpatient (AMB) | payer BC, SELFPAY ==
[2023-09-29 15:30] VITALS: BP 130/82; PULSE 99; O2SAT 98; BMI 44.3
--- NOTE | 2023-09-29 15:30 | MHC.PC.OV ---
Vital Signs 09/29/23 15:30 Height 5 ft 4 in Weight 258 lb BMI 44.3 BP 130/82 Blood Pressure Location Rt brachial Position Sitting Pulse 99 Pulse Source Pulse Oximeter Pulse Oximetry (%) 98 Oxygen Delivery Method Room Air Intake Visit Reasons: Rescheduled from 09/01 Intake Note: pt is here for follow up DM Licensed Loan Officer Required: No Accompanied by: Self / Same As Patient Allergies No Known Allergies Allergy (Verified 09/29/23 17:42) Medication List - Last Reconciled 09/29/23 by BRAIN Saunders blood sugar diagnostic (FreeStyle Lite Strips) check glucose twice a day CPAP (CPAP Machine/Device) Auto pressure 10-11, heated humidification and supplies lisinopril 40 mg PO DAILY metformin 1,000 mg PO BID pioglitazone 30 mg PO DAILY rosuvastatin (Crestor) 20 mg PO DAILY 90 days semaglutide (Ozempic) 0.25 mg (0.368 mL) subcut QWEEK Tobacco use date assessed: 09/29/23 Dental Screening Dental Screen Date: 09/29/23 Did you have a dental visit in the last 12 months?: Yes Did you have a dental problem in the last 6 months where you did not have access to dental care?: No Was dental information given to patient?: Patient has dentist HPI Rescheduled from 09/01 HPI Details Pt is a diabetic, on an CAROL and a statin. A1C in office today is 7.6. Due for microalbumin. Denies polyuria, polydipsia, and neuropathy. Pt denies any signs and symptoms of hypoglycemia and does know how to correct it. Pt reports that he stopped his trulicity. Will start ozempic 0.25mg. instructed on importance of diet. Pt reports eye exam is up to date [facility]LY [facility] Medical History JENNIFFER on CPAP Increased BMI Elevated cholesterol Obesity Uncontrolled diabetes mellitus Elevated ferritin Type 2 diabetes mellitus Liver function abnormality Sleep apnea Psoriasis HTN (hypertension) Forehead laceration Gluteal abscess Surgical History S/P cholecystectomy History of excision of lesion No pertinent past surgical history Family History Father Heart attack Alcoholism Mother High cholesterol Maternal Grandmother Hx of CABG Mental health disorder Maternal Grandfather Hx of CABG Mental health disorder Social History (Reviewed 09/29/23 @ 17:42 by Andrew Jordan [facility]) Housing: Apartment Alcohol intake: former Patient Tobacco Use Status: Former Tobacco user Years Smoked: 5 yrs e-Cigarette/Vaping Use: Never Used Second Hand Smoke Exposure: No service: No Current occupational status: employed Cognitive needs: No Hearing needs: No Vision needs: Yes Questionnaire PHQ-9 Over the last 2 weeks, how often have you been bothered by any of the following problems? 1. Little interest or pleasure in doing things: not at all 2. Feeling down, depressed, or hopeless: not at all 3. Trouble falling or staying asleep, or sleeping too much: not at all 4. Feeling tired or having little energy: not at all 5. Poor appetite or overeating: not at all 6. Feeling bad about yourself - or that you are a failure or have let yourself or your family down: not at all 7. Trouble concentrating on things, such as reading the newspaper or watching television: not at all 8. Moving or speaking so slowly that other people could have noticed. Or the opposite - being so fidgety or restless that you have been moving around a lot more than usual: not at all 9. Thoughts that you would be better off or of hurting yourself in some way: not at all Total score: 0 Depression Screening Interpretation: Negative Depression Screening Done: Yes 40185 - PHQ-9 Billing: Yes Source: Developed by Drs. Heriberto Alcaraz, Ernestina Calixto, Chicho Moreno and colleagues, with an educational michael from [employer]. Thrive Questionnaire Date Thrive assessed: 09/29/23 I am a: Patient What is your living situation today?: I have a steady place to live Within the past 12 months, did the food you bought not last and you didn't have the money to get more?: Never true Within the past 12 months, did you worry whether your food would run out before you got money to buy more?: Sometimes True Do you have trouble paying for medicines?: No Do you have trouble getting transportation to medical appointments?: No Do you have trouble paying your heating and electricity bill?: No Do you have trouble taking care of your child, family member or friend?: No Do you have trouble with day-to-day activities such as bathing, preparing meals, shopping, managing finances, etc.?: No Are you currently unemployed and looking for a job?: No Are you interested in more education?: No Please select the resources that you would like help with: None Currently or been in a relationship where the following occur: No concerns reported THRIVE Score: 1 AUDIT C Alcohol Use Questionnaire (AUDIT-C) 1. How often do you have a drink containing alcohol?: Monthly or less 2. How many drinks containing alcohol do you have on a typical day when you are drinking?: 1 or 2 3. How often do you have six or more drinks on one occasion?: Never Total Score: 1 Score Reviewed/Action Taken: Yes JAYLON-7 AMB Questionnaire JAYLON-7 Date JAYLON - 7 assessed: 09/29/23 Feeling nervous, anxious, or on edge: 0 = Not at all Not being able to stop or control worryin = Not at all Worrying too much about different things: 0 = Not at all Trouble relaxin = Not at all Being so restless that it is hard to sit still: 0 = Not at all Becoming easily annoyed or irritable: 0 = Not at all Feeling afraid as if something awful might happen: 0 = Not at all Total JAYLON-7 score (0-4 normal; 5-9 mild; 10-14 moderate; 15-21 severe): 0 Source: Developed by Drs. Heriberto Alcaraz, Ernestina Calixto, Chicho Moreno and colleagues, with an educational michael from [employer]. JAYLON-7 Assessment Billing JAYLON-7 Assessment Tool: JAYLON-7 Assessment 21840 Review of Systems Const Reports as per HPI Physical exam (Primary Care) Vital Signs: Last Vital Signs Pulse 99 09/29/23 15:30 BP 130/82 09/29/23 15:30 Pulse Ox 98 09/29/23 15:30 Oxygen Delivery Method Room Air 09/29/23 15:30 BMI result Body Mass Index 44.3 Tobacco/Smoking Status: Tobacco use Status Tobacco use date assessed 09/29/23 09/29/23 15:31 Patient Tobacco Use Status Former Tobacco user 09/29/23 15:30 e-Cigarette/Vaping Use Never Used 09/29/23 15:30 PHQ-9: PHQ-9 Score PHQ-9: Total score 0 09/29/23 16:01 Depression Screening Interpretation: Negative Thrive Assessment: Date of Thrive Assessment Date Thrive assessed 09/29/23 09/29/23 15:31 Currently or been in a relationship where the following occur: No concerns reported Const General: cooperative Nutritional Appearance: obese morbidly obese Orientation/consciousness: patient oriented x3 Resp Effort & Inspection: normal respiratory effort Auscultation: clear to auscultation bilaterally Cardio Rate: regular rate Rhythm: regular rhythm Heart sounds: S1 normal heart sound present, S2 normal heart sound present and no murmurs Neuro General: patient oriented x3 Extrem Other: feet are intact, + sensation with use of monofilament Psych Appearance: grossly normal Mental Status: mental status grossly normal Speech and movement: Normal speech and movement present Affect: normal affect Attitude: cooperative Thought process: Normal thought process present Thought content: Normal thought content present Insight: Good insight present (Psych) Judgement: Good judgement present (Psych) Results AMB Hemoglobin A1c AMB Hemoglobin A1c 7.6 % Last Edit by Gilbert Ramos CMA on 09/29/23 15:54 Results Reviewed Results Reviewed: Laboratory Last Values Hgb A1c (Clinic) 7.6 % (4.0-6.0) H 09/29/23 15:40 Assessment and Plan Assessment & Plan (1) Diabetes: Code(s): E11.9 - Type 2 diabetes mellitus without complications Plan: Labs ordered, starting ozempic 0.25mg Plan The patient agreed to the use of a medical reimbursement manager for this encounter. Scribed for BRAIN Harris by Bere Leija medical reimbursement manager, on 09/29/2023 at 16:00 EST. Orders: Orders AMB Hemoglobin A1c Today Z13.9 - Encounter for screening, unspecified Complete Blood Count Auto Diff Today E11.9 - Type 2 diabetes mellitus without complications UA CC w/rflx Micro + Cult Today E11.9 - Type 2 diabetes mellitus without complications Lipid Panel Today E11.9 - Type 2 diabetes mellitus without complications Microalbumin, Random (w Creat) Today E11.9 - Type 2 diabetes mellitus without complications Comprehensive [place]. Panel Fast Today E11.9 - Type 2 diabetes mellitus without complications TSH reflex Free T4 Today E11.9 - Type 2 diabetes mellitus without complications Medications: New semaglutide (Ozempic) for 4 weeks 0.25 mg (0.368 mL) subcut QWEEK 3 mL 0RF Coding Level of Care Code Est Pt Level 3 (35557) Diagnoses Diabetes E11.9 Additional Codes JAYLON-7 Assessment Billing - JAYLON-7 Assessment Tool: JAYLON-7 Assessment 70843 ([id number])
== END 2023-09-29 16:14 | disposition home or self-care (01) ==
PROVIDERS: PCP Nurse Practitioner Family; Visit Provider Nurse Practitioner Family
DX: E11.9 Type 2 diabetes mellitus without complications (principal)
CPT/HCPCS: 83036; 99213

== ENCOUNTER 2024-06-20 06:04 | Outpatient (REF) | payer BC, SELFPAY ==
[2024-06-20 10:15] LABS: Appearance Urine Turbid; Color Urine Dark Yellow; Glucose Urine UA Negative (Negative); Leukocyte Esterase Urine Negative (Negative); Nitrite Urine Negative (Negative); Specific Gravity - Urine >= 1.030 (1.005-1.025); Urine Blood Negative (Negative); Urine Ketones Trace mg/dL (Negative); Urine Protein Trace mg/dL (Neg-Trace)
[2024-06-20 10:33] LABS: MANUAL DIFF FLAG NO
[2024-06-20 10:38] LABS: Creatinine Urine 236.65 mg/dL; Microalbum/Creatinine Ratio Ur 5.4 ug/mg cr (<30)
[2024-06-20 10:43] LABS: Basophils Absolute Auto 0.1 X10*3/uL (0.0-0.2); Basophils Percent Auto 0.7 % (0-2); Eosinophils Absolute Auto 0.1 X10*3/uL (0.0-0.4); Hematocrit 44.3 % (42.0-52.0); Hemoglobin 14.9 g/dl (14.0-18.0); Imm Gran Abs Auto 0.07 X10*3/uL (0.00-0.03); Imm Gran Pct Auto 0.7 % (0.0-0.4); Lymphocytes Percent Auto 27.9 % (20-40); Mean Corpuscular HGB Conc 33.6 g/dl (31.0-36.0); Mean Corpuscular Hemoglobin 28.1 pg (27.0-33.0); Mean Corpuscular Volume 83.4 fL (80.0-98.0); Mean Platelet Volume 10.6 fL (9.4-12.4); Monocytes Absolute Auto 0.6 X10*3/uL (0.1-1.2); Monocytes Percent Auto 5.6 % (2-11); Neutrophils Absolute Auto 6.8 x10*3/uL (2.0-8.3); Neutrophils Percent Auto 64.1 % (45-73); Platelet Count 291 X10*3/uL (160-400); Red Blood Count 5.31 X10*6/uL (4.60-5.80); White Blood Count 10.7 X10*3/uL (4.8-10.8)
[2024-06-20 11:12] LABS: Alanine Aminotransferase 61 U/L (0-40); Albumin Level 4.1 g/dL (3.5-5.0); Alkaline Phosphatase 78 U/L (39-117); Anion Gap 15 (12-20); Aspartate Amino Transferase 35 U/L (5-37); Bilirubin Total 0.7 mg/dL (0.0-1.0); Blood Urea Nitrogen 12 mg/dL (9-16); Carbon Dioxide 24 mmol/L (22-29); Chloride 103 mmol/L (96-108); Cholesterol 153 mg/dL (<200); Estimated Glomerular Filt Rate > 60; Glucose Fasting 169 mg/dL (60-99); Potassium 3.8 mmol/L (3.3-5.1); Sodium 138 mmol/L (135-145); Total Protein 7.2 g/dL (6.5-8.0); Triglycerides 174 mg/dL (<150)
[2024-06-20 11:23] LABS: TSH reflex Free T4 0.61 uIU/mL (0.32-4.0)
[2024-06-20 12:06] LABS: HDL Cholesterol 31 mg/dL (>40); LDL Cholesterol Calculated 88 mg/dL (<100)
== END 2024-06-20 06:05 | disposition home or self-care (01) ==
LOC: HO.HMGCLDS 06:04
PROVIDERS: PCP Nurse Practitioner Family; Visit Provider Nurse Practitioner Family
DX: R74.8 Abnormal levels of other serum enzymes (principal); E11.9 Type 2 diabetes mellitus without complications; Z23 Encounter for immunization
CPT/HCPCS: 36415; 80053; 80061; 81003; 82043; 82570; 83036; 84443; 85025; 90471; 90677; 96127

== ENCOUNTER 2024-06-20 12:48 | Outpatient (AMB) | payer BC, SELFPAY ==
[2024-06-20 12:51] VITALS: BP 136/80; PULSE 94; RESP 20; O2SAT 98; BMI 45.0
--- NOTE | 2024-06-20 12:51 | MHC.PC.OV ---
Vital Signs 06/20/24 12:51 Height 5 ft 4 in Weight 262 lb BMI 45.0 BP 136/80 Blood Pressure Location Lt brachial Position Sitting Respiration 20 Pulse 94 Pulse Source Pulse Oximeter Pulse Oximetry (%) 98 Oxygen Delivery Method Room Air Intake Visit Reasons: 6 month follow up Intake Note: Pt is here today for 6 months follow up visit. Allergies No Known Allergies Allergy (Verified 06/20/24 13:03) Medication List - Last Reconciled 06/20/24 by NANCY Saunders- blood sugar diagnostic (FreeStyle Lite Strips) check glucose twice a day CPAP (CPAP Machine/Device) Auto pressure 10-11, heated humidification and supplies lisinopril 40 mg PO DAILY metformin 1,000 mg PO BID pioglitazone 30 mg PO DAILY rosuvastatin (Crestor) 20 mg PO DAILY 90 days semaglutide 1 mg (0.75 mL) subcut QWEEK Tobacco use date assessed: 06/20/24 Dental Screening Dental Screen Date: 06/20/24 Did you have a dental visit in the last 12 months?: Yes Did you have a dental problem in the last 6 months where you did not have access to dental care?: No Was dental information given to patient?: Patient has dentist HPI 6 month follow up HPI Details Chief Complaint The patient presents for a diabetes follow-up to evaluate glycemic control and discuss medication adjustments. History of Present Illness The patient is a 38-year-old male presenting for follow-up management of Type 2 Diabetes Mellitus. Current therapy includes semaglutide 1 mg, with plans to increase the dose to 2 mg to achieve improved glycemic control. His Hemoglobin A1C is 8%, reflecting less than desired control of diabetes. The presence of neuropathy is confirmed, along with symptoms like polyuria and polydipsia. There is an established history of nonalcoholic fatty liver disease, with recent labs indicating elevated liver enzymes, specifically an increased ALT level, although no acute hepatic symptoms were noted. Routine diabetes screenings, including microalbumin tests, are up to date as of this visit. He is on statin therapy for hyperlipidemia management. Addressing his dietary habits is deemed necessary for overall health improvement. Social History - Diet: The patient is aware of the need to modify diet but has not reported changes. - Exercise: No details provided in the conversation. - Substance Use: No details provided in the conversation. - Employment: No details provided in the conversation. - Family Status: No details provided in the conversation. Health Maintenance - Diabetes management: Current on microalbumin screening. - Liver health: Planned ultrasound and hepatitis screening for elevated ALT. - Hyperlipidemia: Managed with statin therapy. - Cardiovascular risk: Already on an CAROL inhibitor with follow-up evaluation scheduled. Review of Systems - Endocrine: Reports polyuria, polydipsia. - Neurological: Reports neuropathy. - Gastrointestinal: Denies acute hepatic symptoms; no specific gastrointestinal symptoms reported. Physical Exam General: Cooperative, healthy appearing, comfortable, no acute distress and well developed, obese Orientation: Patient oriented x3 Limitations: No limitations Head: Normal to inspection Ears: Hearing grossly normal bilaterally Nose: Normal external nose present Face and sinus: Normal facial exam Eyes: Appearance normal, both eyes and all related structures Neck: Normal visual inspection and Yes full ROM Respiratory: Normal respiratory effort and able to speak in complete sentences. Clear to auscultation bilaterally Cardiovascular: Regular rate and rhythm. Normal S1 and S2 GI: Normal to inspection. Soft to palpation and nontender Skin: skin tags noted, neck Neuro: Patient oriented x3, feet intact, + sensation with use of monofilament Extremities: Normal to inspection Results - Labs: Elevated ALT; Hemoglobin A1C of 8%. Plan I will increase the semaglutide dosage to 2 mg to achieve better glycemic control for his Type 2 Diabetes Mellitus. This change is necessary given the current A1C level of 8%. The patient's neuropathy and symptoms such as polyuria and polydipsia will be routinely monitored. Due to elevated liver enzymes, a liver ultrasound and hepatitis screening will be conducted to further assess hepatic health in light of his nonalcoholic fatty liver disease. There is an ongoing need to address dietary habits for overall disease management. His hyperlipidemia protocol remains on the current statin regimen, with microalbuminuria screening up to date, ensuring proactive diabetes complications management. Scheduled follow-up for evaluating the CAROL inhibitor next month will support cardiovascular health protection. Discussion Notes During the consultation, I discussed with the patient the need to optimize his diabetes management through an increased dose of semaglutide to 2 mg, particularly to address the A1C level of 8%. The risks and benefits of dose escalation, including potential side effects and expected outcomes, were thoroughly explained. Given the elevation in liver enzymes, I elaborated on the necessity for further liver function assessment through ultrasound and hepatitis screening, considering his history of nonalcoholic fatty liver disease. I emphasized the importance of dietary changes in managing both diabetes and liver health and addressed his continued use of statins and CAROL inhibitors as part of his comprehensive treatment plan. Patient Instructions - Take the increased semaglutide dose of 2 mg as prescribed. - Prepare for an ultrasound and hepatitis screening for liver health. - Continue current statin and CAROL inhibitor therapy. - Focus on dietary changes to support diabetes and liver health. - Seek medical advice if you experience symptoms such as jaundice or increased fatigue. FORMERLY [facility] Medical History JENNIFFER on CPAP Increased BMI Elevated cholesterol Obesity Uncontrolled diabetes mellitus Elevated ferritin Type 2 diabetes mellitus Liver function abnormality Sleep apnea Psoriasis HTN (hypertension) Forehead laceration Gluteal abscess Surgical History S/P cholecystectomy History of excision of lesion No pertinent past surgical history Family History Father Heart attack Alcoholism Mother High cholesterol Maternal Grandmother Hx of CABG Mental health disorder Maternal Grandfather Hx of CABG Mental health disorder Social History Housing: Apartment Alcohol intake: former Patient Tobacco Use Status: Former Tobacco user Years Smoked: 5 yrs e-Cigarette/Vaping Use: Never Used Second Hand Smoke Exposure: No service: No Current occupational status: employed Cognitive needs: No Hearing needs: No Vision needs: Yes Questionnaire PHQ-9 Over the last 2 weeks, how often have you been bothered by any of the following problems? 1. Little interest or pleasure in doing things: several days 2. Feeling down, depressed, or hopeless: several days 3. Trouble falling or staying asleep, or sleeping too much: not at all 4. Feeling tired or having little energy: several days 5. Poor appetite or overeating: more than half the days 6. Feeling bad about yourself - or that you are a failure or have let yourself or your family down: several days 7. Trouble concentrating on things, such as reading the newspaper or watching television: several days 8. Moving or speaking so slowly that other people could have noticed. Or the opposite - being so fidgety or restless that you have been moving around a lot more than usual: not at all 9. Thoughts that you would be better off or of hurting yourself in some way: not at all Total score: 7 Depression Screening Interpretation: Negative Depression Screening Done: Yes 62754 - PHQ-9 Billing: Yes Source: Developed by Drs. Heriberto Alcaraz, Ernestina Calixto, Chicho Moreno and colleagues, with an educational michael from [employer]. Thrive Questionnaire Date Thrive assessed: 06/20/24 I am a: Patient What is your living situation today?: I have a steady place to live Within the past 12 months, did the food you bought not last and you didn't have the money to get more?: Never true Within the past 12 months, did you worry whether your food would run out before you got money to buy more?: Never true Do you have trouble paying for medicines?: No Do you have trouble getting transportation to medical appointments?: No Do you have trouble paying your heating and electricity bill?: No Do you have trouble taking care of your child, family member or friend?: No Do you have trouble with day-to-day activities such as bathing, preparing meals, shopping, managing finances, etc.?: No Are you currently unemployed and looking for a job?: No Are you interested in more education?: No Please select the resources that you would like help with: None Currently or been in a relationship where the following occur: No concerns reported THRIVE Score: 0 AUDIT C Alcohol Use Questionnaire (AUDIT-C) 1. How often do you have a drink containing alcohol?: Monthly or less 2. How many drinks containing alcohol do you have on a typical day when you are drinking?: 1 or 2 3. How often do you have six or more drinks on one occasion?: Never Total Score: 1 JAYLON-7 AMB Questionnaire JAYLON-7 Date JAYLON - 7 assessed: 06/20/24 Feeling nervous, anxious, or on edge: 0 = Not at all Not being able to stop or control worryin = Not at all Worrying too much about different things: 1 = Several days Trouble relaxin = Several days Being so restless that it is hard to sit still: 0 = Not at all Becoming easily annoyed or irritable: 1 = Several days Feeling afraid as if something awful might happen: 0 = Not at all Total JAYLON-7 score (0-4 normal; 5-9 mild; 10-14 moderate; 15-21 severe): 3 Source: Developed by Drs. Heriberto Alcaraz, Ernestina Calixto, Chicho Moreno and colleagues, with an educational michael from [employer] JAYLON-7 Assessment Billing JAYLON-7 Assessment Tool: JAYLON-7 Assessment 80349 Physical exam (Primary Care) Vital Signs: Last Vital Signs Pulse 94 06/20/24 12:51 Resp 20 06/20/24 12:51 BP 136/80 06/20/24 12:51 Pulse Ox 98 06/20/24 12:51 Oxygen Delivery Method Room Air 06/20/24 12:51 BMI result Body Mass Index 45.0 Tobacco/Smoking Status: Tobacco use Status Tobacco use date assessed 06/20/24 06/20/24 12:57 Patient Tobacco Use Status Former Tobacco user 06/20/24 12:57 e-Cigarette/Vaping Use Never Used 06/20/24 12:57 PHQ-9: PHQ-9 Score PHQ-9: Total score 7 06/20/24 13:09 Depression Screening Interpretation: Negative Thrive Assessment: Date of Thrive Assessment Date Thrive assessed 06/20/24 06/20/24 12:57 Currently or been in a relationship where the following occur: No concerns reported Results AMB Hemoglobin A1c AMB Hemoglobin A1c 8.0 % Last Edit by Gilbert Ramos CMA on 06/20/24 13:27 Immunizations pneumoc 20-deonte conj-dip cr(PF) 0.5 mL IM syringe Performing Provider: BRAIN Saunders Performing Location: [facility] [place] Administered by: Gilbert Ramos CMA on 06/20/24 13:27 Dose Route Admin Location Dispensed Lot Number Expiration Date [facility] [employer] 0.5 mL IM Right Deltoid 0.5 mL [id number] 05/04/25 [id number] [employer] VIS Given Date VIS Provided VIS Publication Date 06/20/24 Single Vaccine 21 Eligibility Eligibility Date Funding Source Not [facility] Eligible 06/20/24 Private Results Reviewed Results Reviewed: Laboratory Last Values Hgb A1c (Clinic) 8.0 % (4.0-6.0) H 06/20/24 13:26 Coding Level of Care Code Est Pt Level 3 (02713) Diagnoses Elevated liver enzymes R74.8 Diabetes E11.9 Additional Codes JAYLON-7 Assessment Billing - JAYLON-7 Assessment Tool: JAYLON-7 Assessment 90292 ([id number]) PHQ-9 - 85475 - PHQ-9 Billing: Yes ([id number]) Assessment & Plan Assessment & Plan (1) Elevated liver enzymes: Code(s): R74.8 - Abnormal levels of other serum enzymes Category: Medical (2) Diabetes: Code(s): E11.9 - Type 2 diabetes mellitus without complications Category: Medical Plan . Orders: Orders US abdomen complete Today R74.8 - Abnormal levels of other serum enzymes Hepatitis A,B,C Profile Today R74.8 - Abnormal levels of other serum enzymes AMB Hemoglobin A1c Today Z13.9 - Encounter for screening, unspecified Medications: Changed From semaglutide for 4 weeks 1 mg (0.75 mL) subcut QWEEK 3 mL 0RF To semaglutide for 4 weeks 2 mg (0.75 mL) subcut QWEEK 3 mL 2RF
== END 2024-06-20 13:29 | disposition home or self-care (01) ==
LOC: HO.HMCC 12:49
PROVIDERS: PCP Nurse Practitioner Family; Visit Provider Nurse Practitioner Family
DX: R74.8 Abnormal levels of other serum enzymes (principal); E11.9 Type 2 diabetes mellitus without complications; Z23 Encounter for immunization; Z13.9 Encounter for screening, unspecified

== ENCOUNTER 2024-07-25 09:46 | Outpatient (REF) | payer BC, SELFPAY ==
--- NOTE | ~2024-07-25 | US_ITS ---
EXAMINATION: US ABDOMEN HISTORY: R74.8 - Abnormal levels of other serum enzymes TECHNIQUE: Real-time grayscale ultrasound imaging of the abdomen was performed and images were reviewed. COMPARISON: Comparison is made with the prior examination dated 04/25/2020. FINDINGS: Liver: The right lobe of the liver measures 19.9 cm in size. The left lobe of the liver measures 10.6 cm in size. The liver demonstrates increased echotexture, consistent with steatosis. No focal mass or intrahepatic biliary ductal dilatation is identified. There is normal hepatopedal flow in the portal vein. Gallbladder and biliary tree: The gallbladder is surgically absent. The common bile duct is normal in caliber measuring 6 mm. Kidneys: The right kidney measures 13.3 cm in length. The left kidney measures 14.4 cm in length. The kidneys are unremarkable, without evidence of masses, hydronephrosis, or calculi. Pancreas: The pancreatic head, neck, and body are unremarkable. The pancreatic tail is obscured by bowel gas. Spleen: The spleen is normal in size and contour, measuring 12.0 cm in length. Multiple splenules are noted measuring up to 2.3 cm in size. Abdominal aorta and inferior vena cava: The visualized portions of the abdominal aorta and inferior vena cava are normal in caliber. There is no free fluid in the abdomen. US/US abdomen complete IMPRESSION: Hepatomegaly and hepatic steatosis. Electronically signed by: Heriberto Junior MD 07/25/2024 10:56 AM EDT
== END 2024-07-25 09:47 | disposition home or self-care (01) ==
LOC: HO.HMGCX 09:46
PROVIDERS: PCP Nurse Practitioner Family; Visit Provider Nurse Practitioner Family
DX: R74.8 Abnormal levels of other serum enzymes (principal)
CPT/HCPCS: 76700

== ENCOUNTER → 2024-07-25 10:11 | Outpatient (BNV) | payer BC, SELFPAY | PROVIDERS: PCP Nurse Practitioner Family; Visit Provider Radiology Diagnostic Radiology | DX: K76.0 Fatty (change of) liver, not elsewhere classified (principal); R16.0 Hepatomegaly, not elsewhere classified | CPT/HCPCS: 76700 ==